=== PATIENT | male | born 1995 | race Two or more races ===

== ENCOUNTER 2024-10-03 17:06 | Emergency (ER) | payer MEDICAID, OTHER ==
[~2024-10-03] VITALS: Ht 172.7 cm; Wt 99.2 kg
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
[2024-10-03] MEDS ORDERED: IBUP-1455 PO (18:58)
[2024-10-03] MEDS ORDERED: CYCL-837 PO (18:58)
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
[2024-10-03 20:23] VITALS: BP 126/80; PULSE 64; RESP 20; TEMP 98.1; O2SAT 98
== END 2024-10-03 20:25 | disposition home or self-care (01) ==
LOC: ER 17:06
DX: S16.1XXA Strain of muscle, fascia and tendon at neck level, initial encounter (principal); Z88.0 Allergy status to penicillin; Z88.2 Allergy status to sulfonamides; V43.52XA Car driver injured in collision with other type car in traffic accident, initial encounter; Y93.89 Activity, other specified; Y92.488 Other paved roadways as the place of occurrence of the external cause; Y99.8 Other external cause status
CPT/HCPCS: 70450; 71250; 72125; 74176